=== PATIENT | female | born 1980 | race Caucasian/White ===

== ENCOUNTER 2019-07-21 17:33 | Emergency (ER) | payer OTHER, BC ==
[~2019-07-21] VITALS: Ht 177.8 cm; Wt 110.0 kg
[2019-07-21] MEDS ORDERED: BUPR150T3 (17:41)
[2019-07-21] MEDS ORDERED: ATEN25TA (17:41)
[2019-07-21] MEDS ORDERED: ALPR1TAB3 (17:41)
[2019-07-21] MEDS ORDERED: ACET1TAB16 (17:41)
[2019-07-21 20:06] VITALS: BP 141/83
== END 2019-07-21 20:08 | disposition home or self-care (01) ==
LOC: M ED 17:33
DX: Z77.098 Contact with and (suspected) exposure to other hazardous, chiefly nonmedicinal, chemicals (principal); R51 Headache; I10 Essential (primary) hypertension; Z87.440 Personal history of urinary (tract) infections; Z98.84 Bariatric surgery status; F17.200 Nicotine dependence, unspecified, uncomplicated; Z79.899 Other long term (current) drug therapy; Z79.891 Long term (current) use of opiate analgesic

== ENCOUNTER → 2019-08-22 | Outpatient (REF) | payer OTHER ==
[~2019-08-22] MED LIST: ACET1TAB16; ALPR1TAB3; ATEN25TA; BUPR150T3
[2019-08-22 18:51] LABS: APPEARANCE, URINE HAZY (CLEAR); BACTERIA, URINE AUTO NEGATIVE (NEGATIVE); BILIRUBIN, URINE AUTO NEGATIVE (NEGATIVE); BLOOD, URINE BLOOD NEGATIVE (NEGATIVE); CALCIUM OXALATE CRYSTALS SMALL; COLOR, URINE YELLOW (YELLOW); GLUCOSE, URINE (UA) AUTO NEGATIVE (NEGATIVE); KETONE, URINE AUTO TRACE mg/dL (NEGATIVE); LEUKOCYTE ESTERASE, URINE AUTO NEGATIVE (NEGATIVE); MUCUS, URINE SMALL (NEGATIVE); NITRITE, URINE AUTO NEGATIVE (NEGATIVE); PROTEIN, URINE AUTO NEGATIVE (NEGATIVE); RBC, URINE AUTO 0 /HPF (0-3); SPECIFIC GRAVITY URINE AUTO 1.024 (1.002-1.035); SQUAMOUS EPITHELIAL CELL UR AU 1 /HPF (0-6); WBC, URINE AUTO 0 /HPF (0-3)
== END ==
LOC: M LAB REF 17:32
PROVIDERS: ATTEND Obstetrics & Gynecology
DX: Z87.440 Personal history of urinary (tract) infections (principal)

== ENCOUNTER 2025-05-07 15:30 | Inpatient (IN) | payer BC, OTHER, SELFPAY ==
[~2025-05-07] VITALS: Ht 177.8 cm; Wt 170.0 kg
[~2025-05-07 15:30] MED LIST changes: -ACET1TAB16; +ACET300T48; -ALPR1TAB3; +ALPR1TAB3 PO; +BUPR150T12; -BUPR150T3
[2025-05-07 16:49] LABS: KETONE, URINE AUTO RFX NEGATIVE (NEGATIVE); LEUKOCYTE ESTERASE UR AUTO RFX NEGATIVE (NEGATIVE); NITRITE, URINE AUTO RFX NEGATIVE (NEGATIVE); RBC, URINE AUTO RFX 0 /HPF (0-3); SQUAM EPITHELIAL CELL UR AURFX 2 /HPF (0-6); WBC, URINE AUTO RFX 0 /HPF (0-3)
[2025-05-07] MEDS ORDERED: ACETAMINOPHEN 325 MG TAB PO PRN (22:05)
[2025-05-07] MEDS ORDERED: MOM 30 ML SUSPENSION UDC PO PRN (22:05)
[2025-05-07] MEDS ORDERED: IBUPROFEN 400 MG TAB PO PRN (22:05)
[2025-05-07] MEDS ORDERED: traZODone 50 MG TAB PO PRN (22:05)
[2025-05-07] MEDS ORDERED: MAALOX 30 ML SUSP *UDC PO PRN (22:05)
[2025-05-07] MEDS ORDERED: LITH300T2 PO (23:33)
[2025-05-07] MEDS ORDERED: GABA-1172 PO (23:33)
[2025-05-07] MEDS ORDERED: TRAZ1TAB14 PO (23:33)
[2025-05-07] MEDS ORDERED: LISI10TA24 PO (23:33)
[2025-05-07] MEDS ORDERED: PANT40TA29 PO (23:33)
[2025-05-07] MEDS ORDERED: FURO40TA2 PO (23:33)
[2025-05-07] MEDS ORDERED: FLUO-365 PO (23:33)
[2025-05-07] MEDS ORDERED: HOME MED LIST COMPLETE! XX SCH (23:35)
[2025-05-07 23:39] VITALS: BP 109/55; TEMP 97.3; O2SAT 97
[2025-05-08] MEDS: FLUoxetine 20 MG CAP PO SCH (11:20)
[2025-05-08] MEDS: LITHIUM CARBONATE 300 MG CAP PO SCH (11:20)
[2025-05-08] MEDS: FUROSEMIDE 40 MG TAB PO SCH (11:21)
[2025-05-08] MEDS: GABAPENTIN 300 MG CAP PO SCH (11:21)
[2025-05-08] MEDS: PANTOPRAZOLE 40MG TAB PO SCH (11:21)
[2025-05-08] MEDS: ALPRAZolam 0.5 MG TAB PO PRN (11:22)
[2025-05-08 14:37] VITALS: BP 134/76; TEMP 97.6; O2SAT 96
[2025-05-08] MEDS: NICOTINE 21 MG/24 HR 1 EA TRANSDERMAL TD SCH (17:22)
[2025-05-08] MEDS: traZODone 50 MG TAB PO SCH (20:39)
[2025-05-09 06:44] VITALS: BP 119/64; TEMP 97.3; O2SAT 96
[2025-05-09 08:41] VITALS: BP 140/87
[2025-05-09 15:02] VITALS: BP 143/77; TEMP 97.4; O2SAT 95
[2025-05-10 06:48] VITALS: BP 150/80; TEMP 97.2; O2SAT 96
[2025-05-10] MEDS ORDERED: ABIL1TAB11 PO (09:00)
[2025-05-10 09:10] VITALS: BP 142/73
[2025-05-10 09:18] VITALS: BP 142/73
== END 2025-05-10 12:00 | disposition home or self-care (01) | DRG 753 ==
LOC: EDBD 15:30 → M ED 15:30 → M ED INP 22:04 → M PSY 23:34
PROVIDERS: ADMIT Student in an Organized Health Care Education/Training Program; ATTEND Psychiatry & Neurology Psychiatry
DX: F31.81 Bipolar II disorder (principal); Z68.43 Body mass index [BMI] 50.0-59.9, adult; I10 Essential (primary) hypertension; E66.01 Morbid (severe) obesity due to excess calories; F41.1 Generalized anxiety disorder; F60.3 Borderline personality disorder; K21.9 Gastro-esophageal reflux disease without esophagitis; M79.7 Fibromyalgia; I89.0 Lymphedema, not elsewhere classified; G89.29 Other chronic pain; F17.210 Nicotine dependence, cigarettes, uncomplicated; Z88.2 Allergy status to sulfonamides; Z79.899 Other long term (current) drug therapy